=== PATIENT | female | born 1970 | race Two or more races ===

== ENCOUNTER 2021-06-22 04:24 | Inpatient (IN) | payer OTHER ==
[2021-06-18 12:16] VITALS: BMI 38.4
[~2021-06-22 04:24] MED LIST: PHENAZOPYRIDINE HCL 100 MG TABLET (FP) PO ONE
[2021-06-22] MEDS ORDERED: PHENAZOPYRIDINE HCL 100 MG TABLET (FP) ONE (06:17)
[2021-06-22] MEDS ORDERED: ceFAZolin SODIUM 1 GM VIAL ONE (06:17)
[2021-06-22] MEDS ORDERED: PHENAZOPYRIDINE HCL 100 MG TABLET (FP) PO ONE (06:36)
[2021-06-22] MEDS ORDERED: ACETAMINOPHEN 1000 MG/100 ML VIAL (NON FORMULARY) IVPB ONE (07:07)
[2021-06-22] MEDS ORDERED: BUPIVACAINE LIPOSOME/PF (EXPAREL) 266 MG/20 ML VIAL ONE (07:12)
[2021-06-22] MEDS ORDERED: PROPOFOL 20 ML ONE (07:12)
[2021-06-22] MEDS ORDERED: BUPIVACAINE HCL/PF 0.5% (5MG/ML) 10 ML VIAL ONE (07:12)
[2021-06-22] MEDS ORDERED: fentaNYL CITRATE 250 MCG/5 ML VIAL ONE (07:13)
[2021-06-22] MEDS ORDERED: MIDAZOLAM HCL 2 MG/2 ML SINGLE DOSE VIAL ONE ×3 (07:13→07:14)
[2021-06-22] MEDS ORDERED: ROCURONIUM BROMIDE 50 MG/5 ML SYRINGE ONE (07:13)
[2021-06-22] MEDS ORDERED: DEXAMETHASONE SOD PHOSPHATE 4 MG/1 ML VIAL ONE ×2 (08:34→08:58)
[2021-06-22] MEDS ORDERED: ceFAZolin 2 GRAM PREMIX BAG IVPB ONE (08:36)
[2021-06-22] MEDS ORDERED: NEOSTIGMINE METHYLSULFATE 0.5 MG/ML - 10 ML MDV ONE (09:58)
[2021-06-22] MEDS ORDERED: ONDANSETRON 4 MG/2 ML VIAL IVPUSH PRN (10:16)
[2021-06-22] MEDS ORDERED: KETOROLAC TROMETHAMINE 30 MG/1 ML VIAL IVPUSH PRN (10:28)
[2021-06-22] MEDS ORDERED: HYDROmorphone *PCA* 10MG/50ML DISP.SYRIN PCA SCH (10:30)
[2021-06-22] MEDS ORDERED: HYDROmorphone *PCA* 10MG/50ML DISP.SYRIN ONE (10:37)
[2021-06-22] MEDS ORDERED: ACETAMINOPHEN INJECTION 100 ML IVPB ONE (11:12)
[2021-06-22] MEDS ORDERED: KETOROLAC TROMETHAMINE 30 MG/1 ML VIAL ONE (11:12)
[2021-06-22] MEDS ORDERED: LORazepam 2 MG/ML SDV VIAL ONE (11:48)
[2021-06-22] MEDS: GABAPENTIN 300 MG CAPSULE PO ONE ×2 (12:49→16:33)
[2021-06-22] MEDS: CEFAZOLIN 2 GM in DEXTROSE 5%-WATER - 100 ML IVPB ONE ×2 (12:49→16:32)
[2021-06-22] MEDS: LACTATED RINGERS SOLUTION 1,000 ML IV SCH ×2 (12:50→17:50)
[2021-06-22] MEDS: TRANEXAMIC ACID 1000 MG/10 ML VIAL IVPUSH ONE ×2 (12:50→16:34)
[2021-06-22] MEDS ORDERED: LORazepam 2 MG/ML SDV VIAL IVPUSH ONE (13:15)
[2021-06-22] MEDS: CEFAZOLIN 2 GM in DEXTROSE 5%-WATER - 100 ML IVPB SCH (17:47)
[2021-06-23] MEDS: LACTATED RINGERS SOLUTION 1,000 ML IV SCH (01:18)
[2021-06-23] MEDS: CEFAZOLIN 2 GM in DEXTROSE 5%-WATER - 100 ML IVPB SCH (01:19)
[2021-06-23] MEDS ORDERED: PCA PUMP KEY 1 EACH EACH ONE (06:46)
[2021-06-23] MEDS: oxyCODONE HCL 5 MG TABLET PO PRN ×2 (09:13→12:42)
[2021-06-23] MEDS ORDERED: ENOXAPARIN NA (PORCINE) 40 MG/0.4 ML DISP.SYRIN SQ SCH (10:00)
[2021-06-23] MEDS ORDERED: IBUPROFEN 400 MG TABLET (FP) PO PRN (16:32)
[2021-06-23] MEDS ORDERED: BISACODYL 10 MG SUPP.RECT PR PRN (16:33)
[2021-06-23 17:03] LABS: CALCIUM 7.9 mg/dL (8.5-10.1)
[2021-06-23 17:04] LABS: ALBUMIN 2.8 g/dl (3.4-5.0); BLOOD UREA NITROGEN 12.2 mg/dL (7-18)
[2021-06-23 17:07] LABS: CREATININE 0.8 mg/dL (0.55-1.3)
[2021-06-23 17:08] LABS: TOT PROT 6.1 g/dl (6.4-8.2)
[2021-06-23 17:09] LABS: BILIRUBIN,TOTAL 0.5 mg/dL (0.2-1)
[2021-06-23] MEDS: ENOXAPARIN NA (PORCINE) 40 MG/0.4 ML DISP.SYRIN SQ SCH (17:26)
[2021-06-24] MEDS ORDERED: IBUPROFEN 600 MG TABLET (FP) PO PRN (01:47)
[2021-06-24 10:13] VITALS: BP 140/91; PULSE 83; TEMP 98.5
[2021-06-24] MEDS: ENOXAPARIN NA (PORCINE) 40 MG/0.4 ML DISP.SYRIN SQ SCH (10:43)
== END 2021-06-24 15:00 | disposition home or self-care (01) | DRG 743 ==
LOC: JASUSAT 04:24 → J2C 04:26 → UNDOADMIN 04:26 → EDSTATUS 07:30 → J3W 12:47 → JASUSAT 12:48 → J3W 06-23 09:36
PROVIDERS: ADMIT Obstetrics & Gynecology; ATTEND Obstetrics & Gynecology
PROC: 0UT70ZZ Resection of Bilateral Fallopian Tubes, Open Approach (ICD-10-PCS; 2021-06-22)
PROC: 0UT90ZZ Resection of Uterus, Open Approach (ICD-10-PCS; principal; 2021-06-22 07:30)
DX: D25.9 Leiomyoma of uterus, unspecified (principal); R10.2 Pelvic and perineal pain; E66.9 Obesity, unspecified; Z68.38 Body mass index [BMI] 38.0-38.9, adult
CPT/HCPCS: 36415; 80053; 81025; 84703; 86850; 86900; 86901; 88302-TC; 88304-TC; 88305-TC; 94010; 94760; J0131